=== PATIENT | male | born 1990 | race Caucasian/White ===

== ENCOUNTER 2020-08-29 19:39 | Emergency (ER) | payer BC ==
[~2020-08-29] VITALS: Ht 188 cm; Wt 154.2 kg
[~2020-08-29 19:39] MED LIST: AZIT500; HYDACE5 PO; IBUP800 PO; RXTRAM50 PO; TRAM50 PO
[2020-08-29] MEDS ORDERED: LIDOCAINE1 EAC1 TOP (21:40)
[2020-08-29] MEDS ORDERED: CYCL10 PO (21:40)
== END 2020-08-29 22:00 | disposition home or self-care (01) ==
LOC: ER 19:39
DX: M54.5 Low back pain (principal); G89.29 Other chronic pain; I10 Essential (primary) hypertension; F17.220 Nicotine dependence, chewing tobacco, uncomplicated; Z88.1 Allergy status to other antibiotic agents; Z79.899 Other long term (current) drug therapy
CPT/HCPCS: 99283; A9270; J1885

== ENCOUNTER 2020-09-08 12:14 | Emergency (ER) | payer BC ==
[~2020-09-08] VITALS: Ht 188 cm; Wt 158.8 kg
[~2020-09-08 12:14] MED LIST changes: +CYCL10 PO; +LIDOCAINE1 EAC1 TOP
[2020-09-08] MEDS ORDERED: LISI5 PO (13:25)
== END 2020-09-08 14:14 | disposition home or self-care (01) ==
LOC: ER 12:14
DX: M54.42 Lumbago with sciatica, left side (principal); G89.29 Other chronic pain; F17.220 Nicotine dependence, chewing tobacco, uncomplicated; Z88.1 Allergy status to other antibiotic agents; Z79.899 Other long term (current) drug therapy
CPT/HCPCS: 51798; 99283-25